=== PATIENT | female | born 1985 | race African-American/Black ===

== ENCOUNTER 2017-06-21 16:38 | Emergency (ER) | payer OTHER ==
[~2017-06-21] VITALS: Ht 165.1 cm; Wt 62.3 kg
[2017-06-21 16:38] VITALS: BP 134/64
[2017-06-21] MEDS ORDERED: CLEO300C2 PO (17:11)
== END 2017-06-21 17:18 | disposition home or self-care (01) ==
LOC: M ED 16:38
DX: L03.211 Cellulitis of face (principal)

== ENCOUNTER 2017-08-24 15:47 | Emergency (ER) | payer OTHER ==
[~2017-08-24 15:47] MED LIST: CLEO300C2 PO
[2017-08-24 17:54] LABS: MEAN CORPUSCULAR HEMOGLOBIN 30.6 pg (27.0-33.0); MEAN CORPUSCULAR HGB CONC 32.7 g/dl (32.0-36.5); MEAN CORPUSCULAR VOLUME 93.8 fl (80.0-96.0); RED CELL DISTRIBUTION WIDTH 13.3 % (11.5-14.5)
[2017-08-24 18:14] LABS: METHADONE URINE NEGATIVE (NEGATIVE)
[2017-08-24 18:21] LABS: CONTROL LINE HCG INT CTR LINE PRESENT
[2017-08-24 18:36] LABS: ALBUMIN 3.5 GM/DL (3.2-5.2); ALBUMIN/GLOBULIN RATIO 0.88 (1.00-1.93); ALKALINE PHOSPHATASE 61 U/L (45-117); ALT/SGPT 48 U/L (12-78); ANION GAP 10 MEQ/L (8-16); AST/SGOT 64 U/L (15-37); BILIRUBIN,DIRECT 0.1 MG/DL (0.0-0.2); BILIRUBIN,TOTAL 0.3 MG/DL (0.2-1.0); BLOOD UREA NITROGEN 9 MG/DL (7-18); CALCIUM LEVEL 8.1 MG/DL (8.5-10.1); CARBON DIOXIDE LEVEL 25 MEQ/L (21-32); CHLORIDE LEVEL 110 MEQ/L (98-107); CREATININE FOR GFR 0.88 MG/DL (0.55-1.02); GLOMERULAR FILTRATION RATE > 60.0 (>60); GLUCOSE, FASTING 94 MG/DL (70-105); POTASSIUM SERUM 3.5 MEQ/L (3.5-5.1); SODIUM LEVEL 145 MEQ/L (136-145); TOTAL PROTEIN 7.5 GM/DL (6.4-8.2)
[2017-08-24] MEDS ORDERED: ONDANSETRON 4 MG ORAL DISINTEGRATING TAB (S0181) PO ONE (22:00)
[2017-08-24] MEDS ORDERED: PROMETHAZINE INJ 25 MG/ML VIAL (J2550) IM ONE (23:15)
[2017-08-25 05:25] VITALS: BP 122/77
== END 2017-08-25 05:26 | disposition home or self-care (01) ==
LOC: M ED 15:47
DX: F10.129 Alcohol abuse with intoxication, unspecified (principal); Z79.2 Long term (current) use of antibiotics
CPT/HCPCS: 80048; 80076; 80307; 84443; 84703; 85027; 96372; 99284; G0480

== ENCOUNTER 2017-12-08 19:36 | Emergency (ER) | payer OTHER ==
[2017-12-08] MEDS: OSELTAMIVIR PHOSPHATE 75 MG CAP (TAMIFLU) PO (23:15)
== END 2017-12-08 23:27 | disposition home or self-care (01) ==
LOC: M ED 19:36
DX: J09.X2 Influenza due to identified novel influenza A virus with other respiratory manifestations (principal); Z79.2 Long term (current) use of antibiotics
CPT/HCPCS: 87804